=== PATIENT | female | born 1945 | race Caucasian/White ===

== ENCOUNTER → 2017-07-07 | Outpatient (CLI) | payer MEDICARE ==
[~2017-07-07] MED LIST: OMNIPAQUE 350 MG/ML, 100ML BOTTLE ONE
== END | disposition home or self-care (01) ==
LOC: CFH 10:01
PROVIDERS: ATTEND Internal Medicine Hematology & Oncology
DX: C79.51 Secondary malignant neoplasm of bone (principal); C50.912 Malignant neoplasm of unspecified site of left female breast; R91.8 Other nonspecific abnormal finding of lung field; N83.201 Unspecified ovarian cyst, right side; N83.202 Unspecified ovarian cyst, left side; J98.11 Atelectasis; J43.9 Emphysema, unspecified; I51.7 Cardiomegaly
CPT/HCPCS: 71260; 74177; Q9967

== ENCOUNTER → 2017-11-23 | Outpatient (CLI) | payer MEDICARE | END | disposition home or self-care (01) | LOC: CFH 12:16 | PROVIDERS: ATTEND Internal Medicine Hematology & Oncology | DX: C50.912 Malignant neoplasm of unspecified site of left female breast (principal); C79.89 Secondary malignant neoplasm of other specified sites | CPT/HCPCS: 76642; 77066 ==

== ENCOUNTER → 2017-11-24 | Outpatient (CLI) | payer MEDICARE | END | disposition home or self-care (01) | LOC: CFH 11:57 | PROVIDERS: ATTEND Internal Medicine Hematology & Oncology | DX: C79.51 Secondary malignant neoplasm of bone (principal); C50.912 Malignant neoplasm of unspecified site of left female breast; J43.9 Emphysema, unspecified; N83.202 Unspecified ovarian cyst, left side | CPT/HCPCS: 71260; 74177; 82565; Q9967 ==

== ENCOUNTER → 2018-03-07 | Outpatient (CLI) | payer MEDICARE ==
[2018-03-07 12:49] LABS: ALBUMIN 3.5 g/dL (3.4-5.0); ANION GAP 5 mmol/L (5-15); CALCIUM 8.9 mg/dL (8.5-10.1); CHLORIDE 105 mmol/L (98-107)
[2018-03-07 12:54] LABS: ALANINE AMINOTRANSFERASE 19 U/L (12-78); ALKALINE PHOSPHATASE 112 U/L (45-117); BILIRUBIN,TOTAL 0.6 mg/dL (0.2-1.0); CREATININE 0.78 mg/dL (0.55-1.02); TOTAL PROTEIN 7.7 g/dL (6.4-8.2)
[2018-03-07 13:16] LABS: MEAN CORPUSCULAR HEMOGLOBIN 37.4 pg (27.0-34.8); MEAN CORPUSCULAR HGB CONC 34.6 g/dL (32.4-35.8); MEAN CORPUSCULAR VOLUME 107.9 fL (80-100); PLATELET COUNT 180 x10^3/uL (130-400); RED CELL DISTRIBUTION WIDTH 22.3 % (9.6-15.2)
[2018-03-07 13:49] LABS: BASOPHILS # (AUTO) 0.03 x10^3/uL (0-0.1); BASOPHILS % (AUTO) 1 % (0-1); EOSINOPHILS # (AUTO) 0.17 x10^3/uL (0-0.4); EOSINOPHILS % (AUTO) 2 % (1-7); LYMPHOCYTES # (AUTO) 1.89 x10^3/uL (1-3.4); LYMPHOCYTES % (AUTO) 26 % (22-44); MD MORPH REVIEW ONLY; MONOCYTES # (AUTO) 0.49 x10^3/uL (0.2-0.8); MONOCYTES % (AUTO) 7 % (2-9); NEUTROPHILS # (AUTO) 4.73 x10^3/uL (1.8-6.8); NEUTROPHILS % (AUTO) 65 % (42-75)
[2018-03-07 13:52] LABS: ANISOCYTOSIS 1+; POLYCHROMASIA 1+
[2018-03-07 13:53] LABS: <PLATELET ESTIMATE> ADEQUATE; <PLT MORPHOLOGY> NORMAL PLT MORPH
== END | disposition home or self-care (01) ==
LOC: CFH 10:11
PROVIDERS: ATTEND Internal Medicine Hematology & Oncology
DX: C50.912 Malignant neoplasm of unspecified site of left female breast (principal); I10 Essential (primary) hypertension
CPT/HCPCS: 36415; 80053; 85025; 86300

== ENCOUNTER → 2018-03-13 | Outpatient (CLI) | payer MEDICARE | END | disposition home or self-care (01) | LOC: CFH 10:58 | PROVIDERS: ATTEND Internal Medicine Hematology & Oncology | DX: Z08 Encounter for follow-up examination after completed treatment for malignant neoplasm (principal); C50.912 Malignant neoplasm of unspecified site of left female breast; N83.292 Other ovarian cyst, left side; J43.8 Other emphysema | CPT/HCPCS: 71260; 74177; Q9967 ==

== ENCOUNTER → 2018-05-11 | Outpatient (CLI) | payer MEDICARE | END | disposition home or self-care (01) | LOC: PETCFH 07:30 | PROVIDERS: ATTEND Internal Medicine Hematology & Oncology | DX: N64.59 Other signs and symptoms in breast (principal); G95.89 Other specified diseases of spinal cord; J43.9 Emphysema, unspecified; N80.1 Endometriosis of ovary | CPT/HCPCS: 78815; A9552 ==

== ENCOUNTER → 2018-08-18 | Outpatient (CLI) | payer MEDICARE | END | disposition home or self-care (01) | LOC: PETCFH 08:36 | PROVIDERS: ATTEND Internal Medicine Hematology & Oncology | DX: C50.912 Malignant neoplasm of unspecified site of left female breast (principal); J43.2 Centrilobular emphysema; I70.0 Atherosclerosis of aorta | CPT/HCPCS: 78815; A9552 ==

== ENCOUNTER → 2018-09-25 | Outpatient (CLI) | payer MEDICARE | END | disposition home or self-care (01) | LOC: CFH 12:29 | PROVIDERS: ATTEND Internal Medicine Hematology & Oncology | DX: I11.9 Hypertensive heart disease without heart failure (principal); I07.1 Rheumatic tricuspid insufficiency; C50.912 Malignant neoplasm of unspecified site of left female breast; Z72.0 Tobacco use | CPT/HCPCS: 0399T; 93306 ==

== ENCOUNTER 2018-10-16 11:32 | Inpatient (IN) | payer MEDICARE ==
[~2018-10-16] VITALS: Ht 157.5 cm; Wt 84.6 kg
[2018-10-16] MEDS ORDERED: ALBUTEROL/IPRATROPIUM 2.5MG/0.5MG, 3 ML NPPB ONE (12:00)
[2018-10-16 12:12] LABS: BASOPHILS # (AUTO) 0.17 x10^3/uL (0-0.1); BASOPHILS % (AUTO) 2 % (0-1); EOSINOPHILS % (AUTO) 0 % (1-7); LYMPHOCYTES # (AUTO) 1.83 x10^3/uL (1-3.4); LYMPHOCYTES % (AUTO) 17 % (22-44); MD NO; MEAN CORPUSCULAR HEMOGLOBIN 32.2 pg (27.0-34.8); MEAN CORPUSCULAR HGB CONC 34.4 g/dL (32.4-35.8); MEAN CORPUSCULAR VOLUME 93.7 fL (80-100); MEAN PLATELET VOLUME 6.8 fL (7.4-10.4); MONOCYTES # (AUTO) 1.37 x10^3/uL (0.2-0.8); MONOCYTES % (AUTO) 13 % (2-9); NEUTROPHILS # (AUTO) 7.35 x10^3/uL (1.8-6.8); NEUTROPHILS % (AUTO) 69 % (42-75); PLATELET COUNT 461 x10^3/uL (130-400); RED BLOOD COUNT 4.37 x10^6/uL (3.82-5.3); RED CELL DISTRIBUTION WIDTH 15.1 % (9.6-15.2)
[2018-10-16 12:25] LABS: ALBUMIN 3.2 g/dL (3.4-5.0); ANION GAP 7 mmol/L (5-15); CALCIUM 9.4 mg/dL (8.5-10.1); CHLORIDE 103 mmol/L (98-107); CREATININE 0.73 mg/dL (0.55-1.02)
[2018-10-16 12:30] LABS: TROPONIN I < 0.015 ng/mL (0.000-0.045)
[2018-10-16] MEDS ORDERED: ALBUTEROL/IPRATROPIUM 2.5MG/0.5MG, 3 ML ONE (12:46)
--- NOTE | 2018-10-16 12:52 | NUR ---
RT at bedside to administer breathing tx.
[2018-10-16] MEDS ORDERED: AZITHROMYCIN 500 MG in SODIUM CHLORIDE 0.9% 250 ML IVPB ONE (13:00)
[2018-10-16] MEDS ORDERED: CEFTRIAXONE PMX 1GM/50ML 50 ML IVPB ONE (13:00)
--- NOTE | 2018-10-16 13:03 | NUR ---
Pt c/o cough/SOB x5 days. Pt states was seen at urgent care where they did a chest xray and are concerned about pneumonia. Pt has hx of L breast CA with current chemo. Pt with hoarse voice, speaking in full sentences. Pt placed in gown, positioned for comfort in bed with warm blanket. Continuous heart, oxygen and BP monitors applied, all safety measures observed.
[2018-10-16] MEDS ORDERED: SODIUM CHLORIDE FLUSH 10ML SYR IVF PRN (14:30)
[2018-10-16] MEDS ORDERED: CEFTRIAXONE PMX 1GM/50ML 50 ML ONE (14:30)
--- NOTE | 2018-10-16 14:33 | NUR ---
Pt aware of POC to admit for PNX. BC x 2 have been drawn prior to 1st IV abx being started. Pt has productive frequent cough but denies current SOB or CP. Given PO fluids to drink , meal tray ordered. Son @ BS.
[2018-10-16] MEDS ORDERED: LISI-170 PO (14:35)
--- NOTE | 2018-10-16 14:59 | NUR ---
Report called to [facility]. Room is not clean yet but can send up in 15 min. Pt & son updated.
[2018-10-16] MEDS ORDERED: BISACODYL 10 MG SUPP PR PRN (17:00)
[2018-10-16] MEDS: NICOTINE 7 MG/24 HR PATCH.TD24 TD SCH (17:00)
[2018-10-16] MEDS ORDERED: ZOLPIDEM 5MG TABLET PO PRN (17:00)
[2018-10-16] MEDS ORDERED: ACETAMINOPHEN 325 MG TABLET PO PRN (17:00)
[2018-10-16] MEDS ORDERED: hydrALAzine 20 MG/ML, 1ML IVPush PRN (17:00)
[2018-10-16] MEDS ORDERED: ONDANSETRON 2MG/ML, 2ML IVPush PRN (17:00)
[2018-10-16] MEDS: CIPROFLOXACIN OPHTH SOLN 0.3%, 5ML EACHEYE SCH ×2 (17:00→20:51)
[2018-10-16] MEDS ORDERED: DOCUSATE 100 MG CAPSULE PO PRN (17:00)
[2018-10-16] MEDS ORDERED: POLYETHYLENE GLYCOL 17 GM PACKET PO PRN (17:00)
[2018-10-16] MEDS ORDERED: ONDANSETRON ODT 4 MG PO PRN (17:00)
[2018-10-16 17:40] LABS: FREE T4 (FREE THYROXINE) 1.14 ng/dL (0.76-1.46); THYROID STIMULATING HORMONE 1.79 mIU/L (0.358-3.740)
[2018-10-16] MEDS: AZITHROMYCIN 500 MG in SODIUM CHLORIDE 0.9% 250 ML IV SCH (18:33)
[2018-10-16] MEDS: LACTATED RINGERS 1,000 ML IV SCH (18:33)
[2018-10-16 19:09] VITALS: BP_SYST 119; BP_SYST 131; BP_DIAS 68; BP_DIAS 79
[2018-10-16] MEDS: FAMOTIDINE 20 MG TABLET PO SCH (19:50)
[2018-10-16] MEDS: GUAIFENESIN/COD200MG-20MG/10ML LIQUID PO PRN (19:50)
[2018-10-16] MEDS: HEPARIN 5,000 UNITS/ML, 1ML SQ SCH (20:50)
[2018-10-17] MEDS: CIPROFLOXACIN OPHTH SOLN 0.3%, 5ML EACHEYE SCH ×6 (01:38→20:50)
[2018-10-17] MEDS: LACTATED RINGERS 1,000 ML IV SCH ×3 (01:42→15:06)
[2018-10-17] MEDS: GUAIFENESIN/COD200MG-20MG/10ML LIQUID PO PRN ×2 (01:42→16:16)
[2018-10-17 03:50] VITALS: BP 126/63
[2018-10-17] MEDS: HEPARIN 5,000 UNITS/ML, 1ML SQ SCH ×3 (05:00→20:48)
[2018-10-17 05:52] LABS: BASOPHILS # (AUTO) 0.03 x10^3/uL (0-0.1); BASOPHILS % (AUTO) 0 % (0-1); EOSINOPHILS # (AUTO) 0.01 x10^3/uL (0-0.4); EOSINOPHILS % (AUTO) 0 % (1-7); LYMPHOCYTES # (AUTO) 1.93 x10^3/uL (1-3.4); LYMPHOCYTES % (AUTO) 16 % (22-44); MD NO; MEAN CORPUSCULAR HEMOGLOBIN 32.6 pg (27.0-34.8); MEAN CORPUSCULAR HGB CONC 34.4 g/dL (32.4-35.8); MEAN CORPUSCULAR VOLUME 94.6 fL (80-100); MEAN PLATELET VOLUME 6.9 fL (7.4-10.4); MONOCYTES # (AUTO) 1.33 x10^3/uL (0.2-0.8); MONOCYTES % (AUTO) 11 % (2-9); NEUTROPHILS # (AUTO) 8.53 x10^3/uL (1.8-6.8); NEUTROPHILS % (AUTO) 72 % (42-75); PLATELET COUNT 390 x10^3/uL (130-400); RED BLOOD COUNT 3.62 x10^6/uL (3.82-5.3); RED CELL DISTRIBUTION WIDTH 15.2 % (9.6-15.2)
[2018-10-17 06:30] VITALS: BP 110/69
[2018-10-17] MEDS: FAMOTIDINE 20 MG TABLET PO SCH ×2 (09:29→20:50)
[2018-10-17] MEDS: LISINOPRIL 20 MG TABLET PO SCH (09:30)
[2018-10-17 14:23] VITALS: BP 156/76
[2018-10-17] MEDS: CEFTRIAXONE PMX 1GM/50ML 50 ML IV SCH (15:13)
[2018-10-17] MEDS: NICOTINE 7 MG/24 HR PATCH.TD24 TD SCH (15:28)
[2018-10-17] MEDS: AZITHROMYCIN 500 MG in SODIUM CHLORIDE 0.9% 250 ML IV SCH (18:41)
[2018-10-17] MEDS: methylPREDNISolone SOD SUCC 125 MG/2 ML IV SCH (18:46)
[2018-10-17 19:21] VITALS: BP 105/62
[2018-10-18 00:34] VITALS: BP 101/58
[2018-10-18] MEDS: methylPREDNISolone SOD SUCC 125 MG/2 ML IV SCH ×2 (01:06→10:23)
[2018-10-18] MEDS: CIPROFLOXACIN OPHTH SOLN 0.3%, 5ML EACHEYE SCH ×4 (01:07→13:06)
[2018-10-18] MEDS: GUAIFENESIN/COD200MG-20MG/10ML LIQUID PO PRN ×2 (01:13→14:03)
[2018-10-18] MEDS: CEFTRIAXONE PMX 1GM/50ML 50 ML IV SCH (02:03)
[2018-10-18] MEDS: HEPARIN 5,000 UNITS/ML, 1ML SQ SCH ×2 (02:47→13:00)
[2018-10-18 06:34] LABS: ANION GAP 6 mmol/L (5-15); CALCIUM 8.9 mg/dL (8.5-10.1); CHLORIDE 105 mmol/L (98-107); CREATININE 0.69 mg/dL (0.55-1.02)
[2018-10-18 06:35] LABS: MEAN CORPUSCULAR HEMOGLOBIN 33.6 pg (27.0-34.8); MEAN CORPUSCULAR HGB CONC 35.7 g/dL (32.4-35.8); MEAN CORPUSCULAR VOLUME 94.1 fL (80-100); MEAN PLATELET VOLUME 7.4 fL (7.4-10.4); PLATELET COUNT 394 x10^3/uL (130-400); RED BLOOD COUNT 3.85 x10^6/uL (3.82-5.3); RED CELL DISTRIBUTION WIDTH 14.9 % (9.6-15.2)
[2018-10-18 06:43] VITALS: BP 168/83
[2018-10-18 07:10] LABS: MD YES
[2018-10-18 07:12] LABS: BAND#(MANUAL) 1.43 x10^3/uL; BANDS%(MANUAL) 10 % (0-7); LYMPH#(MANUAL) 0.72 x10^3/uL (1-3.4); LYMPHS% (MANUAL) 5 % (22-44); METAMYELOCYTES# (MANUAL) 0.43 x10^3/uL (0-0); METAMYELOCYTES% (MANUAL) 3 % (0-1); MONOS#(MANUAL) 0.29 x10^3/uL (0.3-2.7); MONOS% (MANUAL) 2 % (2-9); SEG#(MANUAL) 11.44 x10^3/uL (1.8-6.8); SEGS% (MANUAL) 80 % (42-75)
[2018-10-18 07:13] LABS: <PLATELET ESTIMATE> ADEQUATE; <PLT MORPHOLOGY> NORMAL PLT MORPH; POLYCHROMASIA 1+
[2018-10-18] MEDS: FAMOTIDINE 20 MG TABLET PO SCH (10:19)
[2018-10-18] MEDS: LISINOPRIL 20 MG TABLET PO SCH (10:19)
[2018-10-18] MEDS ORDERED: AMOX1TAB64 PO (12:59)
[2018-10-18] MEDS ORDERED: METH4TAB2 PO (12:59)
[2018-10-18] MEDS ORDERED: ALBU18HF INH (12:59)
[2018-10-18] MEDS ORDERED: FAMO20TA7 PO (12:59)
== END 2018-10-18 14:23 | disposition home or self-care (01) | DRG 871 ==
LOC: ED 14:17 → EDIP 14:18 → 3NW 15:43 → DCLOUNGE 10-18 14:10
PROVIDERS: ADMIT Internal Medicine; ATTEND Internal Medicine
DX: A41.9 Sepsis, unspecified organism (principal); J15.9 Unspecified bacterial pneumonia; J96.00 Acute respiratory failure, unspecified whether with hypoxia or hypercapnia; J44.0 Chronic obstructive pulmonary disease with (acute) lower respiratory infection; D70.9 Neutropenia, unspecified; R07.89 Other chest pain; H10.9 Unspecified conjunctivitis; I10 Essential (primary) hypertension; Z90.710 Acquired absence of both cervix and uterus; Z79.899 Other long term (current) drug therapy; Z85.3 Personal history of malignant neoplasm of breast; Z87.891 Personal history of nicotine dependence
CPT/HCPCS: 36415; 80048; 82040; 83605; 84145; 84439; 84443; 84484; 85025; 87040; 93005; 94640; 96374; 96375; 99285; G0378; J0456; J0696; J7620; J2930; J7050; J7120

== ENCOUNTER 2018-12-27 08:39 | Outpatient (CLI) | payer MEDICARE ==
[~2018-12-27 08:39] MED LIST changes: +ALBU18HF INH; +AMOX1TAB64 PO; +FAMO20TA7 PO; +LISI-170 PO; +METH4TAB2 PO; -OMNIPAQUE 350 MG/ML, 100ML BOTTLE ONE
== END 2018-12-27 23:59 | disposition home or self-care (01) ==
LOC: PETCFH 08:39
PROVIDERS: ATTEND Internal Medicine Hematology & Oncology
DX: C50.912 Malignant neoplasm of unspecified site of left female breast (principal); K80.20 Calculus of gallbladder without cholecystitis without obstruction; N64.89 Other specified disorders of breast; E11.9 Type 2 diabetes mellitus without complications; Z91.041 Radiographic dye allergy status
CPT/HCPCS: 78815; A9552

== ENCOUNTER 2019-05-25 10:39 | Emergency (ER) | payer MEDICARE ==
[~2019-05-25] VITALS: Ht 157.5 cm; Wt 82.7 kg
[~2019-05-25 10:39] MED LIST changes: +ACID1TAB3 PO; +DOXY100T PO; +SULF1TAB24 PO
[2019-05-25 10:57] VITALS: BP 158/74
--- NOTE | 2019-05-25 11:17 | NUR ---
PT HERE TODAY FOR RIGHT EYE PAIN/SWELLING/DISCHARGE.
[2019-05-25] MEDS ORDERED: PROPARACAINE OPHTH 0.5%, 15ML ONE (11:21)
[2019-05-25] MEDS ORDERED: FLUORESCEIN OPHTHALMIC 1 MG STRIP ONE (11:21)
[2019-05-25] MEDS ORDERED: FLUORESCEIN OPHTHALMIC 1 MG STRIP EACHEYE ONE (11:30)
[2019-05-25] MEDS ORDERED: PROPARACAINE OPHTH 0.5%, 15ML EACHEYE ONE (11:30)
== END 2019-05-25 12:20 | disposition home or self-care (01) ==
LOC: ED 12:15
DX: H10.021 Other mucopurulent conjunctivitis, right eye (principal); I10 Essential (primary) hypertension; F17.200 Nicotine dependence, unspecified, uncomplicated; Z90.710 Acquired absence of both cervix and uterus
CPT/HCPCS: 99283

== ENCOUNTER → 2019-06-27 | Outpatient (CLI) | payer MEDICARE ==
[~2019-06-27] MED LIST changes: +OMNIPAQUE 350 MG/ML, 100ML BOTTLE ONE
== END | disposition home or self-care (01) ==
LOC: CFH 11:32
PROVIDERS: ATTEND Internal Medicine Hematology & Oncology
DX: C79.51 Secondary malignant neoplasm of bone (principal); C50.912 Malignant neoplasm of unspecified site of left female breast; K80.20 Calculus of gallbladder without cholecystitis without obstruction; N83.202 Unspecified ovarian cyst, left side; J90 Pleural effusion, not elsewhere classified; J98.11 Atelectasis; J43.2 Centrilobular emphysema; Z87.891 Personal history of nicotine dependence
CPT/HCPCS: 71260; 74177; Q9967

== ENCOUNTER → 2019-07-02 | Outpatient (CLI) | payer MEDICARE ==
[~2019-07-02] MED LIST changes: -OMNIPAQUE 350 MG/ML, 100ML BOTTLE ONE
== END | disposition home or self-care (01) ==
LOC: CFH 07:53
PROVIDERS: ATTEND Internal Medicine Hematology & Oncology
DX: C50.912 Malignant neoplasm of unspecified site of left female breast (principal); N63.11 Unspecified lump in the right breast, upper outer quadrant; N63.20 Unspecified lump in the left breast, unspecified quadrant
CPT/HCPCS: 76642; 77066; G0279

== ENCOUNTER 2019-07-12 11:17 | Outpatient (CLI) | payer MEDICARE ==
[2019-07-12] MEDS ORDERED: LIDOCAINE 1%, 10ML ONE (11:35)
[2019-07-20] MEDS ORDERED: MEGE400O6 PO (09:50)
[2019-07-20] MEDS ORDERED: AMOX1TAB64 PO (09:50)
== END 2019-07-12 23:59 | disposition home or self-care (01) ==
LOC: RAD 11:17
PROVIDERS: ATTEND Internal Medicine Hematology & Oncology
DX: C50.912 Malignant neoplasm of unspecified site of left female breast (principal); Z17.0 Estrogen receptor positive status [ER+]
CPT/HCPCS: 32555; 71045; 82042; 82945; 83615; 87070; 87075; 87102; 87116; 87205; 87206; 88112; 88305; 88341; 88342; 88360; 89051